=== PATIENT | male | born 1945 | race Caucasian/White ===

== ENCOUNTER 2021-02-23 00:01 | Emergency (ER) | payer MEDICARE, OTHER ==
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
[2021-02-23 00:42] VITALS: BP 142/92
[2021-02-23] MEDS ORDERED: Acetaminophen 325 MG Tab PO ONE (01:08)
[2021-02-23 01:54] VITALS: PULSE 73
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
== END 2021-02-23 01:35 | disposition home or self-care (01) ==
LOC: JD.ED 00:01
DX: R55 Syncope and collapse (principal); S09.90XA Unspecified injury of head, initial encounter; F10.120 Alcohol abuse with intoxication, uncomplicated; Y90.0 Blood alcohol level of less than 20 mg/100 ml; Z88.0 Allergy status to penicillin; W18.30XA Fall on same level, unspecified, initial encounter; Y92.89 Other specified places as the place of occurrence of the external cause
CPT/HCPCS: 36415; 70450; 80053; 80307; 84484; 85025; 85610; 85730; 93005; 93225; 93226; 99285; A9270